=== PATIENT | female | born 1975 | race Two or more races ===

== ENCOUNTER 2022-01-16 16:14 | Emergency (ER) | payer OTHER ==
[~2022-01-16] VITALS: Ht 157.5 cm; Wt 52.2 kg
[2022-01-16] MEDS ORDERED: IV NORMAL SALINE 500 ML BAG IV ONE (16:30)
--- NOTE | 2022-01-16 16:40 | NUR ---
Pt HR decreased to 106bpm, and pt in is ST.
[2022-01-16 16:52] LABS: CARBON DIOXIDE 25 mmol/L (21-32); CHLORIDE 109 mmol/L (98-107); CREATININE 0.5 mg/dL (0.6-1.3); GLUCOSE 113 mg/dL (74-106); POTASSIUM 3.3 mmol/L (3.5-5.1); UREA NITROGEN, BLOOD 8 mg/dL (7-18)
--- NOTE | 2022-01-16 16:55 | NUR ---
Pt denies chest pain, shortness of breath.
[2022-01-16 16:56] LABS: HEMATOCRIT 32.3 % (31.2-41.9); MEAN CORPUSCULAR VOLUME 73.8 fL (75.5-95.3); PLATELET COUNT (AUTO) 297 K/uL (179-408)
--- NOTE | 2022-01-16 18:30 | NUR ---
IV removed. Catheter intact and site benign. Pressure and 4x4 gauze applied to site. No bleeding noted.
--- NOTE | 2022-01-16 19:00 | NUR ---
Patient discharged to home in stable condition. Written and verbal after care instructions given. Patient verbalizes understanding of instructions. Stressed follow up or return to ER for worsening s/s.
[2022-01-16 19:18] VITALS: BP 110/67
== END 2022-01-16 19:18 | disposition home or self-care (01) ==
LOC: ER 16:14
DX: I47.1 Supraventricular tachycardia (principal); R00.2 Palpitations
CPT/HCPCS: 99285; 96360; 71045; 80048; 85025; 84484; 36415; 93005; J7040; A4663